=== PATIENT | female | born 1945 | race Caucasian/White ===

== ENCOUNTER 2018-05-07 14:48 | Inpatient (IN) | payer OTHER ==
[2018-05-07] MEDS ORDERED: NA CHLORIDE 0.9% 1,000 ML ONE ×2 (15:25→18:41)
--- NOTE | 2018-05-07 15:38 | EKG ---
Test Date: 2018-05-07 Test Time: 15:20:52 Sign Maintenance: JENELLE MEASUREMENT RESULTS: Intervals: Rate: 96 WV: 188 QRSD: 72 QT: 254 QTc: 320 Kaycee: P: WV: 188 QRS: 72 T: 187 INTERPRETIVE STATEMENTS: Normal sinus rhythm Nonspecific ST and T wave abnormality Abnormal ECG No previous ECG available for comparison Electronically Signed On 05-07-18 15:38:08 CDT by Micah Javier
--- NOTE | 2018-05-07 15:39 | RAD REPORT ---
EXAM DESCRIPTION: RAD - Chest Single View - 05/07/2018 3:27 pm CLINICAL HISTORY: Cough, dehydration, dizziness, history of lung cancer COMPARISON: PET-CT April 25 TECHNIQUE: AP portable chest image was obtained 1525 hours . FINDINGS: Lungs are fibrotic as a baseline. There is masslike fullness at the right hilum with patch y opacification in the right upper lobe. PET-CT imaging showed mediastinal and hilar malignancy with extension into the right upper lung field. Airspace opacification is present in the right base new from the PET-CT study. This has the appearanc e more typical for pneumonia. Heart size is normal. No significant vascular engorgement. No measurable pleural effusion and no pne umothorax. No acute aortic findings suspected. IMPRESSION: Right lung base pneumonia. Right mediastinal, hilar and patchy right upper lobe malignant findings not significantly different f rom the April 25 PET-CT.
[2018-05-07 15:48] LABS: Urine Blood NEGATIVE (NEG); Urine Glucose NEGATIVE (NEG); Urine Protein 2+ (NEG); Urine Specific Gravity 1.015 (1.005-1.030)
[2018-05-07 16:09] LABS: Absolute Lymphocytes (CBC) 0.8 K/uL (0.7-4.9); Absolute Monocytes 0.6 K/uL (0.1-1.3); Absolute Neutrophil 6.7 K/uL (1.8-8.0); Basophils % 0.1 % (0-1.3); Eosinophils % 0.1 % (0-4.4); Lymphocytes % 9.8 % (15.3-44.8); MCH 27.4 pg (27.0-35.0); MCV 80.3 fL (80-100); MPV 6.3 fL (7.6-11.3); Monocytes % 7.5 % (3.3-12.3); RBC Red Blood Cell Count 4.74 M/uL (3.86-4.86)
[2018-05-07 16:10] LABS: ALT/SGPT 19 U/L (12-78); AST/SGOT 28 U/L (15-37); Albumin 2.7 g/dL (3.4-5.0); Alkaline Phosphatase 102 U/L (45-117); BUN Blood Urea Nitrogen 4 mg/dL (7-18); Bicarbonate 29 mmol/L (21-32); Bilirubin Direct 0.1 mg/dL (0-0.2); Bilirubin Total 0.4 mg/dL (0.2-1.0); CKMB Creatine Kinase MB 1.5 ng/mL (0.3-3.6); Creatine Phosphokinase 68 U/L (26-192); Glucose Level 111 mg/dL (74-106); Lipase 107 U/L (73-393); Magnesium 1.9 mg/dL (1.8-2.4); NT PRO-BNP 380 pg/mL (<125); Protein, Total 7.4 g/dL (6.4-8.2); Sodium Level 123 mmol/L (136-145)
[2018-05-07 16:13] LABS: Protime INR 1.09
[2018-05-07 16:18] LABS: Potassium 2.7 mmol/L (3.5-5.1)
[2018-05-07] MEDS ORDERED: IPRATROPIUM BROM 0.5MG/2.5ML NEB PRN (17:09)
[2018-05-07] MEDS ORDERED: ONDANSETRON 4 MG/2 ML VIAL IV PRN (17:09)
[2018-05-07] MEDS ORDERED: ALBUTEROL 2.5 MG/3 ML NEB SOL NEB PRN (17:09)
[2018-05-07] MEDS ORDERED: AMITRIPTYLINE 10 MG TAB PO PRN (17:09)
[2018-05-07] MEDS ORDERED: Levofloxacin500mg IV 500 MG/100 ML BAG IV ONE (17:10)
--- NOTE | 2018-05-07 17:28 | P.HP ---
Certification for Inpatient Patient admitted to: Inpatient With expected LOS: >2 Midnights Patient will require the following post-hospital care: None Practitioner: I am a practitioner with admitting privileges, knowledge of patient current condition, hospital course, and medical plan of care. Services: Services provided to patient in accordance with Admission requirements found in Title 42 Section 412.3 of the Code of Federal Regulations Patient History Date of Service: 05/07/18 Primary Care Provider: Dr. Hathaway; Oncology-Dr. Ellison Reason for admission: Dizzy, dehydration, decreased appetite History of Present Illness: 72 yo CF presented to the ER with dizziness, fatigue, poor oral intake. The patient was recently diagnosis with stage III small-cell lung cancer. She has seen oncology and radiation oncology in the area. She had seen the radiation oncologist earlier today. She was sent over to the ER because of the symptoms. Patient reports cough, congestion as well. Mild wheezing noted. She has had noted some nausea but no vomiting. Her intake has been poor over the past several weeks. She is in the process of being evaluated for radiation for palliation. At this time she is not well enough to have radiation or chemotherapy. In the ER patient was evaluated. Patient appeared dry. Lab showed a white count of 8.1, hemoglobin 13. Sodium 123, potassium 2.7. Creatinine 0.6. GFR greater than 90. Albumin low at 2.7. BNP slightly elevated. Troponin unremarkable. Urinalysis unremarkable. Chest x-ray showed a right lower lobe pneumonia. Her mass to the right upper lobe unchanged. Previous lab reviewed including MRI of the brain that was done recently which showed no metastasis. PET scan recently showed a 7 by sitter right upper lung mass with mediastinal invasion. Due to nature of her symptoms the patient was admitted for further evaluation and treatment. When I saw the patient the ER, she appeared fatigued. She did not appear in any respiratory distress. Patient admits to smoking about 2 packs per day. Other medical problems include depression, hyperlipidemia, insomnia. Home medications list reviewed: Yes - Past Medical/Surgical History Diabetic: No -: Small-cell lung cancer, stage III -: COPD -: GERD -: Depression -: Insomnia -: Tobacco abuse -: Hysterectomy -: Stent to the lung Psychosocial/ Personal History: The patient is . She has 3 children - Family History Father -: Cancer (Bone cancer) Sister -: Cancer (Ovarian cancer) - Social History Smoking Status: Heavy Tobacco smoker (>10 cigarettes/day) Counseled patient to stop smoking for: less than 10 minutes Smoking therapy provided: Yes Patient receptive to therapy: Yes Alcohol use: No CD- Drugs: No Caffeine use: Yes Place of Residence: Home Review of Systems General: Weakness, Malaise, As per HPI Eyes: Unremarkable ENT: Unremarkable Respiratory: Cough, Shortness of Breath, Wheezing, As per HPI Cardiovascular: Unremarkable Gastrointestinal: Nausea, As per HPI Genitourinary: Unremarkable Musculoskeletal: Unremarkable Integumentary: Unremarkable Neurological: Weakness, As per HPI Lymphatics: Unremarkable Physical Examination - Physical Exam General: Alert, In no apparent distress, Oriented x3, Cooperative, Cachectic HEENT: Atraumatic, Normocephalic, PERRLA, Other (Dry mucous membranes) Neck: Supple, No Thyromegaly Respiratory: Crackles/rales (To the right side), Expiratory wheezes (Mild bilateral) Cardiovascular: Normal pulses, Regular rate/rhythm Gastrointestinal: Normal bowel sounds, Soft and benign, Non-distended, No tenderness, No masses, No rebound, No guarding Musculoskeletal: No erythema, No tenderness, No warmth Integumentary: No tenderness/swelling, No erythema, No warmth, No cyanosis, Other (Dry skin) Neurological: Normal speech, Normal strength at 5/5 x4 extr, Normal tone, Normal affect - Studies Laboratory Data (last 24 hrs) 05/07/18 15:35: PT 12.9 H, INR 1.09, APTT 23.9 L 05/07/18 15:35: WBC 8.1, Hgb 13.0, Hct 38.0, Plt Count 600 H 05/07/18 15:35: Sodium 123 L, Potassium 2.7 L*, BUN 4 L, Creatinine 0.60, Glucose 111 H, Magnesium 1.9, Total Bilirubin 0.4, AST 28, ALT 19, Alkaline Phosphatase 102, Lipase 107 Assessment and Plan - Problems (Diagnosis) (1) Pneumonia Current Visit: Yes Status: Acute Plan: Patient with lower lobe pneumonia. Will start IV Levaquin. Will obtain blood and sputum culture. Will bowel wait for influenza. Will start IV fluids due to her malnutrition and hyponatremia. Will replace electrolytes. Patient with recent diagnosis of stage III small-cell lung cancer. Patient not a candidate for radiation or chemotherapy at this time due to her current condition. Will discuss with radiation oncology and oncology. Will have physical therapy assess ambulation tomorrow. Will try to obtain records from [facility]. Anticipate hospitalization for 2-3 days. Qualifiers: Laterality: right Lung location: lower lobe of lung (2) Hyponatremia Current Visit: Yes Status: Acute Plan: Likely from volume depletion. Will continue with IV fluids. Will monitor and replace electrolytes. (3) Hypokalemia Current Visit: Yes Status: Acute Plan: Will monitor and replace electrolytes. Replacement protocol in place. (4) Small cell lung cancer Current Visit: Yes Status: Chronic Plan: Patient with stage III small-cell lung cancer. Patient has been seen by oncology and radiation oncology in the area. Will discuss with them tomorrow. Recent MRI of the brain shows no metastasis. Recent PET scan shows 7 x 6 cm right upper lung mass with mediastinal invasion. I did address advanced directives with the patient. Patient is not ready to make a decision at this time. Will keep her full code. This also was discuss with her son. They understand that her prognosis is poor. Patient and son considering possible DNR status with possible hospice if her condition does not improve especially if she is not able to get adequately better for chemotherapy or radiation. Will discuss with Oncology. (5) Malnutrition Current Visit: Yes Status: Acute Plan: Will have dietary assess oral intake. Will provide supplementation. Qualifiers: Protein-calorie malnutrition severity: moderate (6) Nausea Current Visit: Yes Status: Acute Plan: Will provide medication as needed. (7) GERD (gastroesophageal reflux disease) Current Visit: Yes Status: Suspected Plan: Will provide PPI. Qualifiers: Esophagitis presence: esophagitis presence not specified Qualified Code(s) : K21.9 - Gastro-esophageal reflux disease without esophagitis (8) COPD (chronic obstructive pulmonary disease) Current Visit: Yes Status: Suspected Plan: Patient likely has underlying COPD with recent diagnosis of stage III small- cell lung cancer. Patient with history of tobacco abuse. Will start COPD medication. Qualifiers: COPD type: chronic bronchitis (9) Tobacco abuse Current Visit: Yes Status: Chronic Plan: Cessation addressed in detail. Patient plans to quit. (10) Depression Current Visit: Yes Status: Chronic Plan: Will continue with her medication. Qualifiers: Depression Type: unspecified Qualified Code(s): F32.9 - Major depressive disorder, single episode, unspecified (11) Insomnia Current Visit: Yes Status: Chronic Plan: Will provide medication as needed. Qualifiers: Insomnia type: unspecified Qualified Code(s): G47.00 - Insomnia, unspecified (12) Dehydration Current Visit: Yes Status: Acute Plan: Continue IV fluids. Continue as above. Discharge Plan: Home Plan to discharge in: 72 Hours - Advance Directives Does patient have a Living Will: No Does patient have a Durable POA for Healthcare: No - Code Status/Comfort Care Code Status Assessed: Yes Time Spent Managing Pts Care (In Minutes): 55
--- NOTE | 2018-05-07 17:39 | EDPHYS ---
Physician Documentation [facility] Name: Dena Durand Age: 72 yrs Sex: Female : 1945 Arrival Date: 05/07/2018 Time: 14:51 Bed 16 Private MD: Chaka Long R ED Physician Nilesh Perkins HPI: 05/07 17:32 This 72 yrs old Female presents to ER via Wheelchair with complaints of tamar DEHYDRATION, Decreased Appetite. 17:32 The patient presents to the emergency department with nausea, vomiting. Onset: The tamar symptoms/episode began/occurred 3 day(s) ago. Possible causes: unknown. Historical: - Allergies: 14:58 Amoxicillin; sv 14:58 hydrocodone; sv 14:58 tramadol; sv - Home Meds: 14:58 Albuterol Inhl [Active]; amitriptyline 10 mg Oral tab daily [Active]; baclofen 10 mg sv Oral tab 1 tab 3 times per day [Active]; citalopram 10 mg tab 1 tab once daily [Active]; Integra oral oral [Active]; pravastatin 40 mg oral tab 1 tab once daily [Active]; Vitamin D3 oral oral [Active]; - PMHx: 14:58 lung CA; sv - PSHx: 14:58 stent in lung; Hysterectomy; sv - Immunization history:: Adult Immunizations up to date. - Social history:: Smoking status: Patient uses tobacco products, smokes two packs cigarettes per day. - Ebola Screening: : No symptoms or risks identified at this time. ROS: 17:33 Constitutional: Negative for fever, chills, and weight loss, Eyes: Negative for injury, tamar pain, redness, and discharge, ENT: Negative for injury, pain, and discharge, Neck: Negative for injury, pain, and swelling, Cardiovascular: Negative for chest pain, palpitations, and edema, Respiratory: Negative for shortness of breath, cough, wheezing, and pleuritic chest pain, Back: Negative for injury and pain, : Negative for injury, bleeding, discharge, and swelling, MS/Extremity: Negative for injury and deformity, Skin: Negative for injury, rash, and discoloration, Psych: Negative for depression, anxiety, suicide ideation, homicidal ideation, and hallucinations, Allergy/Immunology: Negative for hives, rash, and allergies, Endocrine: Negative for neck swelling, polydipsia, polyuria, polyphagia, and marked weight changes, Hematologic/Lymphatic: Negative for swollen nodes, abnormal bleeding, and unusual bruising. 17:33 Abdomen/GI: Positive for nausea. 17:33 Neuro: Positive for weakness. Exam: 17:33 Constitutional: This is a well developed, well nourished patient who is awake, alert, tamar and in no acute distress. Head/Face: Normocephalic, atraumatic. Eyes: Pupils equal round and reactive to light, extra-ocular motions intact. Lids and lashes normal. Conjunctiva and sclera are non-icteric and not injected. Cornea within normal limits. Periorbital areas with no swelling, redness, or edema. ENT: Nares patent. No nasal discharge, no septal abnormalities noted. Tympanic membranes are normal and external auditory canals are clear. Oropharynx with no redness, swelling, or masses, exudates, or evidence of obstruction, uvula midline. Mucous membranes moist. Neck: Trachea midline, no thyromegaly or masses palpated, and no cervical lymphadenopathy. Supple, full range of motion without nuchal rigidity, or vertebral point tenderness. No Meningismus. Chest/axilla: Normal chest wall appearance and motion. Nontender with no deformity. No lesions are appreciated. Cardiovascular: Regular rate and rhythm with a normal S1 and S2. No gallops, murmurs, or rubs. Normal PMI, no JVD. No pulse deficits. Abdomen/GI: Soft, non-tender, with normal bowel sounds. No distension or tympany. No guarding or rebound. No evidence of tenderness throughout. Back: No spinal tenderness. No costovertebral tenderness. Full range of motion. Female : Normal external genitalia. Skin: Warm, dry with normal turgor. Normal color with no rashes, no lesions, and no evidence of cellulitis. MS/ Extremity: Pulses equal, no cyanosis. Neurovascular intact. Full, normal range of motion. Neuro: Awake and alert, GCS 15, oriented to person, place, time, and situation. Cranial nerves II-XII grossly intact. Motor strength 5/5 in all extremities. Sensory grossly intact. Cerebellar exam normal. Normal gait. Psych: Awake, alert, with orientation to person, place and time. Behavior, mood, and affect are within normal limits. 17:33 Respiratory: the patient does not display signs of respiratory distress, Respirations: normal, Breath sounds: decreased breath sounds, rhonchi, that are mild, are scattered. Vital Signs: 14:58 BP 134 / 68; Pulse 98; Resp 18; Temp 97; Pulse Ox 95% ; Weight 42.64 kg; Height 5 ft. 2 sv in. (157.48 cm); Pain 0/10; 16:00 BP 146 / 72; Pulse 90; Resp 24; Pulse Ox 97% on R/A; rb1 17:00 BP 123 / 81; Pulse 95; Resp 29; Pulse Ox 98% on R/A; Pain 0/10; rb1 18:00 BP 138 / 72; Pulse 96; Resp 29; Pulse Ox 95% on R/A; rb1 19:58 BP 139 / 92; Pulse 97; Resp 22; Pulse Ox 95% on R/A; Pain 0/10; aa1 14:58 Body Mass Index 17.19 (42.64 kg, 157.48 cm) sv MDM: 15:00 Patient medically screened. [facility] 17:34 Data reviewed: vital signs, nurses notes, lab test result(s), EKG, radiologic studies, tamar plain films. 05/07 15:13 Order name: Basic Metabolic Panel; Complete Time: 16:52 [facility] 05/07 15:13 Order name: CBC with Diff; Complete Time: 16:52 [facility] 05/07 15:13 Order name: Ckmb; Complete Time: 16:52 [facility] 05/07 15:13 Order name: CPK; Complete Time: 16:52 [facility] 05/07 15:13 Order name: LFT's; Complete Time: 16:52 [facility] 05/07 15:13 Order name: Magnesium; Complete Time: 16:52 [facility] 05/07 15:13 Order name: NT PRO-BNP; Complete Time: 16:52 [facility] 05/07 15:13 Order name: PT-INR; Complete Time: 16:52 [facility] 05/07 15:13 Order name: Ptt, Activated; Complete Time: 16:52 [facility] 05/07 15:13 Order name: Troponin (emerg Dept Use Only); Complete Time: 16:52 [facility] 05/07 15:13 Order name: Lipase; Complete Time: 16:52 [facility] 05/07 15:47 Order name: Urine Dipstick--Ancillary (enter results); Complete Time: 16:52 05/07 16:57 Order name: Blood Culture Adult (2) [facility] 05/07 16:57 Order name: Urine Osmolality; Complete Time: 19:42 [facility] 05/07 16:57 Order name: Urine Sodium Random; Complete Time: 19:42 [facility] 05/07 16:57 Order name: Osmolality, Serum; Complete Time: 19:42 [facility] 05/07 16:59 Order name: Urine Culture [facility] 05/07 17:17 Order name: Urinalysis [facility] 05/07 17:17 Order name: Basic Metabolic Panel [facility] 05/07 17:17 Order name: Basic Metabolic Panel [facility] 05/07 17:17 Order name: Basic Metabolic Panel [facility] 05/07 17:17 Order name: Basic Metabolic Panel [facility] 05/07 17:17 Order name: CBC with Automated Diff [facility] 05/07 17:17 Order name: CBC with Automated Diff [facility] 05/07 17:17 Order name: CBC with Automated Diff [facility] 05/07 17:17 Order name: CBC with Automated Diff [facility] 05/07 17:17 Order name: Magnesium [facility] 05/07 17:17 Order name: Magnesium [facility] 05/07 17:17 Order name: Magnesium [facility] 05/07 17:17 Order name: Magnesium [facility] 05/07 15:13 Order name: XRAY Chest (1 view); Complete Time: 16:52 [facility] 05/07 15:13 Order name: EKG; Complete Time: 15:13 [facility] 05/07 15:13 Order name: Cardiac monitoring; Complete Time: 15:45 [facility] 05/07 15:13 Order name: EKG - Nurse/Tech; Complete Time: 15:49 [facility] 05/07 15:13 Order name: IV Saline Lock; Complete Time: 15:45 [facility] 05/07 15:13 Order name: Labs collected and sent; Complete Time: 15:45 [facility] 05/07 15:13 Order name: O2 Per Protocol; Complete Time: 15:46 [facility] 05/07 15:13 Order name: O2 Sat Monitoring; Complete Time: 15:46 [facility] 05/07 15:13 Order name: Urine Dipstick-Ancillary (obtain specimen); Complete Time: 16:22 [facility] 05/07 17:17 Order name: Physical Therapy Consult [facility] 05/07 17:17 Order name: Dietitian Consult [facility] 05/07 17:17 Order name: Regular [facility] 05/07 17:17 Order name: T4 Free [facility] 05/07 17:17 Order name: T4 Free [facility] 05/07 17:17 Order name: Thyroid Stimulating Hormone [facility] 05/07 17:17 Order name: Thyroid Stimulating Hormone [facility] 05/07 17:17 Order name: Influenza Screen (A ; Complete Time: 19:42 [facility] 05/07 17:17 Order name: Sputum Culture [facility] 05/07 17:17 Order name: Chest Pa And Lat (2 Views) [facility] 05/07 17:17 Order name: Chest Pa And Lat (2 Views) [facility] 05/07 17:32 Order name: Phosphorus tamar 05/07 19:01 Order name: Phosphorus; Complete Time: 19:42 EDMS Administered Medications: Discontinued: NS 0.9% 1000 ml IV at 100 ml/hr continuous 15:40 Drug: NS 0.9% 1000 ml Route: IV; Rate: 1 bolus; Site: right antecubital; rb1 16:54 Follow up: IV Status: Completed infusion rb1 18:41 Drug: levofloxacin 500 mg Volume: 100 ml; Route: IVPB; Infused Over: 60 mins; Site: rb1 left wrist; 19:45 Follow up: IV Status: Completed infusion aa1 18:41 Drug: Potassium Chloride 20 mEq Route: IV; Rate: per protocol; Site: right antecubital; rb1 19:57 Follow up: IV Status: Infusion continued upon admission aa1 19:45 Drug: NS 0.9% 1000 ml Route: IV; Rate: 100 ml/hr; Site: right antecubital; aa1 19:53 CANCELLED (Duplicate Order): Potassium Phosphate 15 mmol IV at per protocol once; dose tamar as phosphate; infuse over 4-6 hours (mix in 250 mL NS) 19:57 Drug: NS 0.9% with KCl 20 mEq/L 1000 ml Route: IV; Rate: 100 ml/hr; Site: right aa1 antecubital; 19:57 Follow up: IV Status: Infusion continued upon admission aa1 Disposition: 05/07/18 17:38 Hospitalization ordered by Donavon Marrufo for Inpatient Admission. Preliminary diagnosis are Volume depletion, Hypo-osmolality and hyponatremia, Hypokalemia, Pneumonia due to other specified bacteria, Weakness. - Bed requested for Telemetry/MedSurg (Inpatient). - Status is Inpatient Admission. aa1 - Condition is Fair. - Problem is new. - Symptoms have improved. UTI on Admission? No Signatures: Dispatcher [employer] EDOH Maile Hayden, RN JC Nora Epstein RN RN Lizzette Vasquez RN RN aa1 Nilesh Perkins MD MD cha Barber, Rebecca, RN RN [facility] Corrections: (The following items were deleted from the chart) 19:32 17:38 Hospitalization Ordered by Donavon Yaron ALBRIGHT for Inpatient Admission. Preliminary diagnosis is Volume depletion; Hypo-osmolality and hyponatremia; Hypokalemia; Pneumonia due to other specified bacteria; Weakness. Bed requested for Telemetry/MedSurg (Inpatient). Status is Inpatient Admission. Condition is Fair. Problem is new. Symptoms have improved. UTI on Admission? No. [facility] 19:35 19:32 05/07/2018 17:38 Hospitalization Ordered by DonavonVidal ALBRIGHT for Inpatient Admission. Preliminary diagnosis is Volume depletion; Hypo-osmolality and hyponatremia; Hypokalemia; Pneumonia due to other specified bacteria; Weakness. Bed requested for Telemetry/MedSurg (Inpatient). Status is Inpatient Admission. Condition is Fair. Problem is new. Symptoms have improved. UTI on Admission? No. 19:53 19:43 Potassium Phosphate 15 mmol IV at per protocol once; dose as phosphate; infuse tamar over 4-6 hours (mix in 250 mL NS) ordered. [facility] 20:20 19:35 05/07/2018 17:38 Hospitalization Ordered by Donavon Yaron ALBRIGHT for Inpatient aa1 Admission. Preliminary diagnosis is Volume depletion; Hypo-osmolality and hyponatremia; Hypokalemia; Pneumonia due to other specified bacteria; Weakness. Bed requested for Telemetry/MedSurg (Inpatient). Status is Inpatient Admission. Condition is Fair. Problem is new. Symptoms have improved. UTI on Admission? No. mw
--- NOTE | 2018-05-07 17:39 | ER ---
Nurse's Notes [facility] Name: Dena Durand Age: 72 yrs Sex: Female : 1945 Arrival Date: 05/07/2018 Time: 14:51 Bed 16 Private MD: Chaka Long R Diagnosis: Volume depletion;Hypo-osmolality and hyponatremia;Hypokalemia;Pneumonia due to other specified bacteria;Weakness Presentation: 05/07 14:54 Presenting complaint: Patient states: dizziness, dehydration, no appetite for awhile. sv Pt recently dx with lung cancer. Transition of care: patient was not received from another setting of care. Onset of symptoms is unknown. Care prior to arrival: None. 14:54 Method Of Arrival: Wheelchair sv 14:54 Acuity: WALKER 3 sv 15:50 Risk Assessment: Do you want to hurt yourself or someone else? Patient reports no rb1 desire to harm self or others. Initial Sepsis Screen: Does the patient meet any 2 criteria? No. Patient's initial sepsis screen is negative. Does the patient have a suspected source of infection? No. Patient's initial sepsis screen is negative. Historical: - Allergies: 14:58 Amoxicillin; sv 14:58 hydrocodone; sv 14:58 tramadol; sv - Home Meds: 14:58 Albuterol Inhl [Active]; amitriptyline 10 mg Oral tab daily [Active]; baclofen 10 mg sv Oral tab 1 tab 3 times per day [Active]; citalopram 10 mg tab 1 tab once daily [Active]; Integra oral oral [Active]; pravastatin 40 mg oral tab 1 tab once daily [Active]; Vitamin D3 oral oral [Active]; - PMHx: 14:58 lung CA; sv - PSHx: 14:58 stent in lung; Hysterectomy; sv - Immunization history:: Adult Immunizations up to date. - Social history:: Smoking status: Patient uses tobacco products, smokes two packs cigarettes per day. - Ebola Screening: : No symptoms or risks identified at this time. Screenin:04 Abuse screen: Denies threats or abuse. Nutritional screening: Has had N/V for 3 or more rb1 days poor appetite. Tuberculosis screening: No symptoms or risk factors identified. Fall Risk None identified. Assessment: 15:04 General: Appears in no apparent distress. comfortable, slender, Behavior is calm, rb1 cooperative, Denies fever. Pain: Denies pain. Neuro: Level of Consciousness is awake, alert, obeys commands, Oriented to person, place, time, situation. Cardiovascular: Capillary refill < 3 seconds is brisk in bilateral fingers. Respiratory: Airway is patent Respiratory effort is even, unlabored, Respiratory pattern is regular, symmetrical. GI: Reports nausea. : No signs and/or symptoms were reported regarding the genitourinary system. Derm: Skin is pink, warm \T\ dry. 16:02 Reassessment: Patient appears in no apparent distress at this time. pt. is resting with rb1 eyes closed, respirations even, unlabored. call light within reach. 16:40 Reassessment: Assisted pt. to the restroom via wheelchair. rb1 17:00 Reassessment: Dr. Marrufo is at pt. bedside. rb1 17:00 Reassessment: Patient appears in no apparent distress at this time. Patient and/or rb1 family updated on plan of care and expected duration. Pain level reassessed. Patient is alert, oriented x 3, equal unlabored respirations, skin warm/dry/pink. Grandson at bedside. 18:00 Reassessment: Patient appears in no apparent distress at this time. No changes from rb1 previously documented assessment. pt. is eating at bedside. Family at bedside. 19:05 Reassessment: Patient appears in no apparent distress at this time. Patient and/or aa1 family updated on plan of care and expected duration. Pain level reassessed. Patient is alert, oriented x 3, equal unlabored respirations, skin warm/dry/pink. Awaiting bed assignment. 20:03 Reassessment: Patient appears in no apparent distress at this time. Patient and/or aa1 family updated on plan of care and expected duration. Pain level reassessed. Patient is alert, oriented x 3, equal unlabored respirations, skin warm/dry/pink. Report given to Niki on 4th floor. Vital Signs: 14:58 BP 134 / 68; Pulse 98; Resp 18; Temp 97; Pulse Ox 95% ; Weight 42.64 kg; Height 5 ft. 2 sv in. (157.48 cm); Pain 0/10; 16:00 BP 146 / 72; Pulse 90; Resp 24; Pulse Ox 97% on R/A; rb1 17:00 BP 123 / 81; Pulse 95; Resp 29; Pulse Ox 98% on R/A; Pain 0/10; rb1 18:00 BP 138 / 72; Pulse 96; Resp 29; Pulse Ox 95% on R/A; rb1 19:58 BP 139 / 92; Pulse 97; Resp 22; Pulse Ox 95% on R/A; Pain 0/10; aa1 14:58 Body Mass Index 17.19 (42.64 kg, 157.48 cm) sv ED Course: 14:51 Patient arrived in ED. rg4 14:51 Chaka Long MD is Private Physician. rg4 14:55 Triage completed. sv 14:59 Arm band placed on right wrist. sv 15:00 Nilesh Perkins MD is Attending Physician. tamar 15:01 Ene Gtz RN is Primary Nurse. rb1 15:04 Patient has correct armband on for positive identification. Placed in gown. Bed in low rb1 position. Call light in reach. Side rails up X 1. vehicle monitor technician on. Pulse ox on. NIBP on. Warm blanket given. 15:25 X-ray completed. Portable x-ray completed in exam room. Patient tolerated procedure kp1 well. 15:26 XRAY Chest (1 view) In Process Unspecified. EDMS 15:27 EKG done, by chief ultrasound technologist. reviewed by Nilesh Perkins MD. at1 15:40 Initial lab(s) drawn, by ne, sent to lab. Inserted saline lock: 22 gauge in right dh3 antecubital area, using aseptic technique. Blood collected. 17:32 add on labs drawn by ne and sent to lab. First set of blood cultures drawn by ne. [facility] 17:37 Donavon Marrufo DO is Hospitalizing Provider. tamar 18:30 add on labs drawn by ne and sent to lab. Second set of blood cultures drawn by ne. [facility] Inserted saline lock: 22 gauge in left wrist, using aseptic technique. Blood collected. 19:00 Report given to JC Ahuja. rb1 20:02 No provider procedures requiring assistance completed. Patient admitted, IV remains in aa1 place. Administered Medications: Discontinued: NS 0.9% 1000 ml IV at 100 ml/hr continuous 15:40 Drug: NS 0.9% 1000 ml Route: IV; Rate: 1 bolus; Site: right antecubital; rb1 16:54 Follow up: IV Status: Completed infusion rb1 18:41 Drug: levofloxacin 500 mg Volume: 100 ml; Route: IVPB; Infused Over: 60 mins; Site: rb1 left wrist; 19:45 Follow up: IV Status: Completed infusion aa1 18:41 Drug: Potassium Chloride 20 mEq Route: IV; Rate: per protocol; Site: right antecubital; rb1 19:57 Follow up: IV Status: Infusion continued upon admission aa1 19:45 Drug: NS 0.9% 1000 ml Route: IV; Rate: 100 ml/hr; Site: right antecubital; aa1 19:53 CANCELLED (Duplicate Order): Potassium Phosphate 15 mmol IV at per protocol once; dose tamar as phosphate; infuse over 4-6 hours (mix in 250 mL NS) 19:57 Drug: NS 0.9% with KCl 20 mEq/L 1000 ml Route: IV; Rate: 100 ml/hr; Site: right aa1 antecubital; 19:57 Follow up: IV Status: Infusion continued upon admission aa1 Output: 16:40 Urine: 1ml (Voided); Total: 1ml. rb1 Outcome: 17:38 Decision to Hospitalize by Provider. atmar 20:10 Admitted to [facility] accompanied by nurse, family with patient, via wheelchair, room 412, aa1 with chart, Report called to Niki 20:10 Condition: stable 20:10 Instructed on the need for admit, Demonstrated understanding of instructions. 20:20 Patient left the ED. aa1 Signatures: Dispatcher [employer] Maile Rogers RN RN sv Kern, Alissa, RN RN aa1 Nilesh Perkins MD MD cha gonzales, Amanda, record systems analyst EKG Tat1 Ene Gtz, JC GREENE rb1 Jyoti Rich rg4 Alesha Hercules kp1 Emmy Fishman 3
[2018-05-07] MEDS: NA CHLORIDE 0.9% 1,000 ML IV SCH (18:00)
[2018-05-07] MEDS ORDERED: KCL 20 MEQ/100 mL IVPB 20 MEQ/100 ML BAG IV ONE (18:37)
[2018-05-07] MEDS ORDERED: NS KCL 20MEQ 1,000 ML IV ONE (19:51)
[2018-05-07] MEDS: ARFORMOTEROL TARTRATE 15 MCG/2 ML VIAL.NEB NEB SCH (20:35)
[2018-05-07] MEDS: ENSURE HIGH PROTEIN 237 ML CAN PO SCH (21:00)
[2018-05-07] MEDS: BENZONATATE 100 MG CAP PO PRN (22:01)
[2018-05-07] MEDS: ENOXAPARIN 40 MG/0.4 ML SQ SCH (22:05)
[2018-05-07] MEDS: ATORVASTATIN 10 MG TAB PO SCH (22:07)
[2018-05-08] MEDS: NA CHLORIDE 0.9% 1,000 ML IV SCH ×3 (04:06→23:54)
[2018-05-08 04:39] LABS: Absolute Lymphocytes (CBC) 0.6 K/uL (0.7-4.9); Absolute Monocytes 0.6 K/uL (0.1-1.3); Absolute Neutrophil 5.6 K/uL (1.8-8.0); Basophils % 0.2 % (0-1.3); Eosinophils % 0.2 % (0-4.4); Hematocrit 33.6 % (36.0-45.0); Lymphocytes % 8.7 % (15.3-44.8); MCH 27.4 pg (27.0-35.0); MCV 80.3 fL (80-100); MPV 6.4 fL (7.6-11.3); Monocytes % 9.2 % (3.3-12.3); RBC Red Blood Cell Count 4.18 M/uL (3.86-4.86)
[2018-05-08 05:12] LABS: BUN Blood Urea Nitrogen 3 mg/dL (7-18); Bicarbonate 25 mmol/L (21-32); Glucose Level 96 mg/dL (74-106); Magnesium 1.7 mg/dL (1.8-2.4); Potassium 3.2 mmol/L (3.5-5.1); Sodium Level 128 mmol/L (136-145); Thyroid Stimulating Hormone 1.12 uIU/mL (0.36-3.74)
[2018-05-08] MEDS: guaiFENesin 100 MG/5 ML UCUP PO PRN ×2 (06:27→21:26)
[2018-05-08] MEDS ORDERED: MAGNESIUM SULFATE 1 gm IVPB 1 GM/100 ML BAG IV ONE (06:30)
--- NOTE | 2018-05-08 07:55 | RAD REPORT ---
EXAM DESCRIPTION: Husam Pa And Lat (2 Views)05/08/2018 6:51 am CLINICAL HISTORY: Cough COMPARISON: May 07, 2018 FINDINGS: Overall no significant change has occurred in the right basilar consolidation. Right hilar/right upper lobe opacities are stable. Left lung appears clear of acute infiltrate. The aorta is tortuous/ ectatic. Small right pleural effusion is present. The heart is normal size IMPRESSION: No significant change in a right basilar pneumonia
[2018-05-08] MEDS ORDERED: PNEUMOCOCCAL VACCINE 0.5 ML IMVAC ONE (08:00)
[2018-05-08] MEDS: ARFORMOTEROL TARTRATE 15 MCG/2 ML VIAL.NEB NEB SCH ×2 (08:23→19:59)
[2018-05-08] MEDS: ENSURE HIGH PROTEIN 237 ML CAN PO SCH ×2 (09:00→21:00)
[2018-05-08] MEDS: NICOTINE 21 MG/PAT TD SCH (10:08)
[2018-05-08] MEDS: KCL 20 MEQ/100 mL IVPB 20 MEQ/100 ML BAG IV SCH ×2 (10:08→13:22)
[2018-05-08] MEDS: PANTOPRAZOLE 40MG TABLET PO SCH (10:09)
[2018-05-08] MEDS: ENOXAPARIN 40 MG/0.4 ML SQ SCH (10:09)
[2018-05-08] MEDS: CITALOPRAM 10 MG TABLET PO SCH (10:09)
--- NOTE | 2018-05-08 10:18 | P.PN ---
Subjective Date of Service: 05/08/18 Primary Care Provider: Dr. Hathaway; Oncology-Dr. Ellison Chief Complaint: Dizzy, dehydration, decreased appetite Subjective: Improving (Slight improvement noted. Patient still feels tired.) Physical Examination - Vital Signs Temperature: 97.0 F Blood Pressure: 137/75 Pulse: 92 Respirations: 24 Pulse Ox (%): 93 - Physical Exam General: Alert, In no apparent distress, Oriented x3, Cooperative HEENT: Atraumatic Neck: Supple Respiratory: Diminished (To the right side), Crackles/rales (Right side) Cardiovascular: Normal pulses, Regular rate/rhythm Gastrointestinal: Normal bowel sounds, Soft and benign, Non-distended, No tenderness, No masses, No rebound, No guarding Musculoskeletal: No erythema, No tenderness, No warmth Integumentary: No tenderness/swelling, No erythema, No warmth, No cyanosis Neurological: Normal speech, Normal strength at 5/5 x4 extr, Normal tone, Normal affect - Studies Laboratory Data (last 24 hrs) 05/07/18 15:35: PT 12.9 H, INR 1.09, APTT 23.9 L 05/07/18 15:35: WBC 8.1, Hgb 13.0, Hct 38.0, Plt Count 600 H 05/07/18 15:35: Sodium 123 L, Potassium 2.7 L*, BUN 4 L, Creatinine 0.60, Glucose 111 H, Magnesium 1.9, Total Bilirubin 0.4, AST 28, ALT 19, Alkaline Phosphatase 102, Lipase 107 Medications List Reviewed: Yes Assessment & Plan - Problems (Diagnosis) (1) Pneumonia Onset Date: 05/08/18 Current Visit: Yes Status: Acute Plan: Patient with lower lobe pneumonia. Will continue with IV antibiotic therapy. Hydration improved. Will continue with IV fluids. Dietary to assess malnutrition. Will wean off oxygen. Will treat her COPD. Patient with history of stage III small-cell lung cancer. Will discuss with her radiation oncologist an oncologist. Will have physical therapy assess ambulation. Anticipate discharge in the next 1-2 days. Qualifiers: Laterality: right Lung location: lower lobe of lung (2) Hyponatremia Onset Date: 05/08/18 Current Visit: Yes Status: Acute Plan: Likely from volume depletion. This has improved. Will continue with IV fluids. Will monitor and replace electrolytes. (3) Hypokalemia Onset Date: 05/08/18 Current Visit: Yes Status: Acute Plan: Will monitor and replace electrolytes. Replacement protocol in place. (4) Small cell lung cancer Onset Date: 05/08/18 Current Visit: Yes Status: Chronic Plan: Patient with stage III small-cell lung cancer. Patient has been seen by oncology and radiation oncology in the area. Will discuss with both. Recent MRI of the brain shows no metastasis. Recent PET scan shows 7 x 6 cm right upper lung mass with mediastinal invasion. I did address advanced directives with the patient yesterday. Patient is not ready to make a decision at this time. Patient understands that her lung cancer likely carries a poor prognosis. Will continue monitor and address. This also was discuss with her son. Son also understands that her prognosis is poor. Patient and son considering possible DNR status with possible hospice if her condition does not improve especially if she is not able to get adequately better for chemotherapy or radiation. Will discuss with Oncology. (5) Malnutrition Onset Date: 05/08/18 Current Visit: Yes Status: Acute Plan: Will have dietary assess oral intake. Will provide supplementation. Qualifiers: Protein-calorie malnutrition severity: moderate (6) Nausea Onset Date: 05/08/18 Current Visit: Yes Status: Acute Plan: Will provide medication as needed. (7) GERD (gastroesophageal reflux disease) Onset Date: 05/08/18 Current Visit: Yes Status: Suspected Plan: Will continue with PPI. Qualifiers: Esophagitis presence: esophagitis presence not specified Qualified Code(s) : K21.9 - Gastro-esophageal reflux disease without esophagitis (8) COPD (chronic obstructive pulmonary disease) Onset Date: 05/08/18 Current Visit: Yes Status: Suspected Plan: Patient likely has underlying COPD with recent diagnosis of stage III small- cell lung cancer. Patient with history of tobacco abuse. Continue with COPD medication Qualifiers: COPD type: chronic bronchitis (9) Tobacco abuse Onset Date: 05/08/18 Current Visit: Yes Status: Chronic Plan: Cessation addressed in detail. Patient plans to quit. Will provide nicotine patch (10) Depression Onset Date: 05/08/18 Current Visit: Yes Status: Chronic Plan: Will continue with her medication. Qualifiers: Depression Type: unspecified Qualified Code(s): F32.9 - Major depressive disorder, single episode, unspecified (11) Insomnia Onset Date: 05/08/18 Current Visit: Yes Status: Chronic Plan: Will provide medication as needed. Qualifiers: Insomnia type: unspecified Qualified Code(s): G47.00 - Insomnia, unspecified (12) Dehydration Onset Date: 05/08/18 Current Visit: Yes Status: Acute Plan: Continue IV fluids. Continue as above. Discharge Plan: Home Plan to discharge in: 48 Hours Time Spent Managing Pts Care (In Minutes): 55
[2018-05-08] MEDS: ACETAMINOPHEN 500 MG TAB PO PRN ×2 (14:38→22:21)
[2018-05-08] MEDS ORDERED: Levofloxacin500mg IV 500 MG/100 ML BAG IV SCH (17:00)
[2018-05-08] MEDS: ATORVASTATIN 10 MG TAB PO SCH (21:26)
[2018-05-08] MEDS ORDERED: POTASSIUM CL SA 10 MEQ TAB PO ONE (22:12)
[2018-05-08] MEDS: BENZONATATE 100 MG CAP PO PRN (22:22)
[2018-05-09 04:22] LABS: Absolute Lymphocytes (CBC) 0.7 K/uL (0.7-4.9); Absolute Monocytes 0.6 K/uL (0.1-1.3); Absolute Neutrophil 6.3 K/uL (1.8-8.0); Basophils % 0.6 % (0-1.3); Eosinophils % 0.3 % (0-4.4); Hematocrit 34.5 % (36.0-45.0); Lymphocytes % 9.2 % (15.3-44.8); MCH 28.1 pg (27.0-35.0); MCV 80.5 fL (80-100); MPV 5.9 fL (7.6-11.3); Monocytes % 7.9 % (3.3-12.3); RBC Red Blood Cell Count 4.29 M/uL (3.86-4.86)
[2018-05-09 05:13] LABS: BUN Blood Urea Nitrogen 3 mg/dL (7-18); Bicarbonate 27 mmol/L (21-32); Glucose Level 101 mg/dL (74-106); Magnesium 1.8 mg/dL (1.8-2.4); Potassium 4.3 mmol/L (3.5-5.1); Sodium Level 132 mmol/L (136-145)
[2018-05-09] MEDS ORDERED: MAGNESIUM SULFATE 1 gm IVPB 1 GM/100 ML BAG IV ONE (06:33)
[2018-05-09] MEDS: guaiFENesin 100 MG/5 ML UCUP PO PRN ×2 (06:45→12:48)
[2018-05-09] MEDS: ARFORMOTEROL TARTRATE 15 MCG/2 ML VIAL.NEB NEB SCH (07:01)
[2018-05-09] MEDS: NICOTINE 21 MG/PAT TD SCH (08:38)
[2018-05-09] MEDS: ENSURE HIGH PROTEIN 237 ML CAN PO SCH (08:39)
[2018-05-09] MEDS: PANTOPRAZOLE 40MG TABLET PO SCH (08:39)
[2018-05-09] MEDS: CITALOPRAM 10 MG TABLET PO SCH (08:39)
[2018-05-09] MEDS: ENOXAPARIN 40 MG/0.4 ML SQ SCH (08:39)
[2018-05-09] MEDS: BENZONATATE 100 MG CAP PO PRN (09:59)
[2018-05-09] MEDS: NA CHLORIDE 0.9% 1,000 ML IV SCH (10:00)
--- NOTE | 2018-05-09 13:29 | P.DS ---
Admission Date: 05/07/18 Discharge Date: 05/09/18 Primary Care Provider: Dr. Hathaway; Oncology-Dr. Ellison Disposition: HOSPICE-HOME Discharge Condition: GOOD Reason for Admission: Dizzy, dehydration, decreased appetite - Problems (1) Pneumonia Onset Date: 05/08/18 Current Visit: Yes Status: Acute Qualifiers: Laterality: right Lung location: lower lobe of lung (2) Hyponatremia Onset Date: 05/08/18 Current Visit: Yes Status: Acute (3) Hypokalemia Onset Date: 05/08/18 Current Visit: Yes Status: Acute (4) Small cell lung cancer Onset Date: 05/08/18 Current Visit: Yes Status: Chronic (5) Malnutrition Onset Date: 05/08/18 Current Visit: Yes Status: Acute Qualifiers: Protein-calorie malnutrition severity: moderate (6) Nausea Onset Date: 05/08/18 Current Visit: Yes Status: Acute (7) GERD (gastroesophageal reflux disease) Onset Date: 05/08/18 Current Visit: Yes Status: Suspected Qualifiers: Esophagitis presence: esophagitis presence not specified Qualified Code(s) : K21.9 - Gastro-esophageal reflux disease without esophagitis (8) COPD (chronic obstructive pulmonary disease) Onset Date: 05/08/18 Current Visit: Yes Status: Suspected Qualifiers: COPD type: chronic bronchitis (9) Tobacco abuse Onset Date: 05/08/18 Current Visit: Yes Status: Chronic (10) Depression Onset Date: 05/08/18 Current Visit: Yes Status: Chronic Qualifiers: Depression Type: unspecified Qualified Code(s): F32.9 - Major depressive disorder, single episode, unspecified (11) Insomnia Onset Date: 05/08/18 Current Visit: Yes Status: Chronic Qualifiers: Insomnia type: unspecified Qualified Code(s): G47.00 - Insomnia, unspecified (12) Dehydration Onset Date: 05/08/18 Current Visit: Yes Status: Acute Brief History of Present Illness: 72 yo CF presented to the ER with dizziness, fatigue, poor oral intake. The patient was recently diagnosis with stage III small-cell lung cancer. She has seen oncology and radiation oncology in the area. She had seen the radiation oncologist earlier today. She was sent over to the ER because of the symptoms. Patient reports cough, congestion as well. Mild wheezing noted. She has had noted some nausea but no vomiting. Her intake has been poor over the past several weeks. She is in the process of being evaluated for radiation for palliation. At this time she is not well enough to have radiation or chemotherapy. In the ER patient was evaluated. Patient appeared dry. Lab showed a white count of 8.1, hemoglobin 13. Sodium 123, potassium 2.7. Creatinine 0.6. GFR greater than 90. Albumin low at 2.7. BNP slightly elevated. Troponin unremarkable. Urinalysis unremarkable. Chest x-ray showed a right lower lobe pneumonia. Her mass to the right upper lobe unchanged. Previous lab reviewed including MRI of the brain that was done recently which showed no metastasis. PET scan recently showed a 7 by sitter right upper lung mass with mediastinal invasion. Due to nature of her symptoms the patient was admitted for further evaluation and treatment. When I saw the patient the ER, she appeared fatigued. She did not appear in any respiratory distress. Patient admits to smoking about 2 packs per day. Other medical problems include depression, hyperlipidemia, insomnia. Hospital Course: During the course of her stay her symptoms improved. Patient found have right lower lobe pneumonia. Patient was treated with antibiotic therapy. At discharge she will continue with Levaquin 500 mg once daily for 5 days. Patient will be provided medication for cough. Patient has underlying stage III small-cell lung cancer. Patient was found to be malnourished and dehydrated. Case discussed at length with oncology and radiation oncology. Her prognosis is poor and terminal. This was addressed in detail with the patient and son. Patient understands this. Advanced directives were addressed in detail. Patient desires to be DNR. Hospice also was discussed. Patient desires hospice. At discharge hospice will be arranged. Further medications for pain, comfort and agitation will be provided by hospice. Radiation oncology and oncology agree with plan of care. Patient has COPD. She will continue with oxygen to maintain sats above 90%. Patient may continue with COPD medication. Symbicort 2 puffs twice daily and albuterol 2 puffs 3 times a day as needed for shortness of breath will be provided. Medication can be transition to nebulized treatments as an outpatient with hospice. Patient likely has GERD. Protonix 40 mg 1 pill once daily will be provided at discharge. Patient with depression. Patient may continue with her medication-Celexa 10 mg daily. Patient may also continue with medication for insomnia-Elavil 10 mg at night. Medication for anxiety may be provided by hospice. Patient has hyperlipidemia. Patient may continue with her pravastatin. Comfort feeding may be continued. Further adjustment in medication can be done by hospice. Vital Signs/Physical Exam: Temp Pulse Resp BP Pulse Ox 97.9 F 90 18 134/76 94 05/09/18 11:29 05/09/18 11:29 05/09/18 11:29 05/09/18 11:29 05/09/18 11:29 General: Alert, In no apparent distress, Other (Patient appears very feeble) HEENT: Atraumatic Neck: Supple Respiratory: Diminished (Slightly diminished to the right but improved airway sounds.) Cardiovascular: Normal pulses, Regular rate/rhythm Gastrointestinal: Normal bowel sounds, Soft and benign, Non-distended, No tenderness, No masses, No rebound, No guarding Musculoskeletal: No tenderness, No warmth, Other (Muscle wasting to the upper and lower extremities bilateral) Integumentary: No tenderness/swelling, No erythema, No warmth, No cyanosis Neurological: Normal speech, Normal strength at 5/5 x4 extr, Normal tone, Other (Overall very weak.), Abnormal affect (Patient appears depressed.) Laboratory Data at Discharge: WBC 7.7 K/uL (4.3-10.9) 05/09/18 04:08 Hgb 12.0 g/dL (12.0-15.0) 05/09/18 04:08 Hct 34.5 % (36.0-45.0) L 05/09/18 04:08 Plt Count 493 K/uL (152-406) H 05/09/18 04:08 PT 12.9 SECONDS (9.5-12.5) H 05/07/18 15:35 INR 1.09 05/07/18 15:35 APTT 23.9 SECONDS (24.3-36.9) L 05/07/18 15:35 Sodium 132 mmol/L (136-145) L 05/09/18 04:08 Potassium 4.3 mmol/L (3.5-5.1) 05/09/18 04:08 BUN 3 mg/dL (7-18) L 05/09/18 04:08 Creatinine 0.40 mg/dL (0.55-1.3) L 05/09/18 04:08 Glucose 101 mg/dL (74-106) 05/09/18 04:08 Phosphorus 2.2 mg/dL (2.5-4.9) L 05/07/18 18:30 Magnesium 1.8 mg/dL (1.8-2.4) 05/09/18 04:08 Total Bilirubin 0.4 mg/dL (0.2-1.0) 05/07/18 15:35 AST 28 U/L (15-37) 05/07/18 15:35 ALT 19 U/L (12-78) 05/07/18 15:35 Alkaline Phosphatase 102 U/L (45-117) 05/07/18 15:35 Lipase 107 U/L (73-393) 05/07/18 15:35 Home Medications: Amitriptyline [Elavil*] 10 mg PO BEDTIME 05/08/18 Citalopram [Celexa*] 10 mg PO DAILY 05/08/18 Pravastatin Sodium 20 mg PO BEDTIME 05/08/18 Albuterol Sulfate [Proair Hfa] 8.5 gm IH TID PRN #1 hfa.aer.ad 05/09/18 Benzonatate [Tessalon Perle*] 200 mg PO TID PRN #30 cap 05/09/18 Budesonide/Formoterol Fumarate [Symbicort 160-4.5 Mcg Inhaler] 2 puff IH BID # 60 hfa.aer.ad 05/09/18 Levofloxacin [Levaquin] 500 mg PO DAILY #5 tablet 05/09/18 Pantoprazole [Protonix Tab*] 40 mg PO ACB #30 tab 05/09/18 New Medications: Albuterol Sulfate [Proair Hfa] 8.5 gm IH TID PRN #1 hfa.aer.ad PRN Reason: Shortness Of Breath Benzonatate [Tessalon Perle*] 200 mg PO TID PRN #30 cap PRN Reason: Cough Budesonide/Formoterol Fumarate [Symbicort 160-4.5 Mcg Inhaler] 2 puff IH BID # 60 hfa.aer.ad Levofloxacin [Levaquin] 500 mg PO DAILY #5 tablet Pantoprazole [Protonix Tab*] 40 mg PO ACB #30 tab Patient Discharge Instructions: 1. Patient will be discharged home with hospice. 2. Patient found have right lower lobe pneumonia. At discharge she will continue with Levaquin 500 mg once daily for 7 days. Patient will be provided medication for cough. 3. Patient has underlying stage III small-cell lung cancer. Advanced directives and hospice address in detail. Patient wishes to be DNR. Hospice will be arranged at discharge. Further adjustment in medication can be done by hospice. Comfort feeding may be continued. Further medications for pain, comfort and agitation will be provided by hospice. 4. Patient likely has COPD. New medication for COPD has been started. Patient continue with Symbicort 2 puffs twice daily and albuterol 2 puffs 3 times a day as needed for shortness of breath will be provided. This can be transition to nebulized treatments as an outpatient with hospice. 5. Patient likely has GERD. Protonix 40 mg 1 pill once daily will be provided at discharge. 6. Patient with depression. Patient may continue with her medication-Celexa 10 mg daily. Patient may also continue with medication for insomnia-Elavil 10 mg at night. Medication for anxiety may be provided by hospice. 7. Patient has hyperlipidemia. Patient may continue with her pravastatin. 8. Comfort feeding may be continued. Further adjustment in medication can be done by hospice. Diet: Regular Activity: Fall precautions Time spent managing pt's care (in minutes): 55
== END 2018-05-09 17:21 | disposition hospice, home (50) | DRG 194 ==
LOC: ER 14:48 → ERHOLD 17:09 → 4TH 20:03
PROVIDERS: ADMIT Family Medicine; ATTEND Family Medicine
DX: J18.9 Pneumonia, unspecified organism (principal); J44.0 Chronic obstructive pulmonary disease with (acute) lower respiratory infection; C34.90 Malignant neoplasm of unspecified part of unspecified bronchus or lung; E87.1 Hypo-osmolality and hyponatremia; E44.0 Moderate protein-calorie malnutrition; Z68.1 Body mass index [BMI] 19.9 or less, adult; Z72.0 Tobacco use; E87.6 Hypokalemia; E86.0 Dehydration; K21.9 Gastro-esophageal reflux disease without esophagitis; F32.9 Major depressive disorder, single episode, unspecified; E78.5 Hyperlipidemia, unspecified; Z66 Do not resuscitate; G47.00 Insomnia, unspecified; Z88.0 Allergy status to penicillin
CPT/HCPCS: 36415; 71045; 71046; 80048; 80076; 81003; 82550; 82553; 83690; 83735; 83880; 83930; 83935; 84100; 84132; 84300; 84439; 84443; 84484; 85025; 85610; 85730; 87040; 87086; 87088; 87804; 93005; 94640; 97163; 99203; 99285; J1650; J3475; J7030; J7605